=== PATIENT | male | born 1980 | race Caucasian/White ===

== ENCOUNTER 2024-04-06 18:04 | Emergency (ER) | payer OTHER, SELFPAY ==
[2024-04-06] MEDS ORDERED: Ketorolac Tromethamine 30 MG (1 mL) VIAL ONE (18:18)
[2024-04-06 18:57] LABS: #Basophils 0.1 thou/uL (0.0-0.2); #Eosinphils 0.5 thou/uL (0.0-0.7); #Lymphocytes 2.8 thou/uL (1.20-3.40); #Monocytes 0.9 thou/uL (0.11-0.59); %Basophils 1.1 % (0.0-1.0); %Eosinophils 4.2 % (0.0-10.0); %Lymphocytes 24.8 % (21.0-51.0); %Monocytes 8.1 % (0.0-10.0); %Neutrophils 61.8 % (42.0-75.0); Hematocrit 50.1 % (42.0-52.0); Mean Corpuscular HGB CONC 33.9 g/dL (32.0-36.0); Mean Corpuscular Hemoglobin 30.6 pg (27.0-31.0); Mean Corpuscular Volume 90.1 fl (78.0-98.0); Mean Platelet Volume 7.5 fL (7.4-10.4); Platelet Count 305 10x3/uL (130-400); RBC Distribution Width 11.5 % (11.5-14.5); Red Blood Cell (RBC) Count 5.56 mill/uL (4.70-6.10); White Blood Cell (WBC) Count 11.3 10x3/uL (4.8-10.8)
[2024-04-06] MEDS ORDERED: fentaNYL 50 mcg/mL 1 mL Vial ONE (18:59)
[2024-04-06 19:13] LABS: ALT (SGPT) 33 U/L (8-55); AST (SGOT) 22 U/L (5-34); Albumin 4.1 g/dL (3.5-5.0); Alkaline Phosphatase 65 U/L (40-110); Anion Gap 15 mmol/L (10-20); BUN (Urea Nitrogen) 17 mg/dL (8.9-20.6); Bilirubin, Total 0.4 mg/dL (0.2-1.2); Calc. Creatinine Clearance 0 mL/min (70-130); Calcium 9.4 mg/dL (7.8-10.44); Carbon Dioxide 19 mmol/L (22-29); Chloride 106 mmol/L (98-107); Estimated GFR 50; Globulin 2.9 g/dL (2.4-3.5); Glucose 169 mg/dL (70-105); Lipase 50 U/L (8-78); Potassium 4.4 mmol/L (3.5-5.1); Sodium 136 mmol/L (136-145)
[2024-04-06] MEDS ORDERED: Tamsulosin HCl 0.4 MG CAP ONE (19:31)
[2024-04-06 20:02] LABS: Bacteria/HPF None Seen HPF (None Seen); Bilirubin Negative (Negative); Blood, Urine Large (Negative); CAUTI Indications for Culture Pelvic or flank pain; Clarity Clear (Clear); Glucose, Urine (Dipstick) Negative (Negative); Ketone, Urine Trace mg/dL (Negative); Leukocyte Negative (Negative); Nitrite Negative (Negative); Protein, Urine (Dipstick) 30 mg/dL (Neg-Trace); Squamous Epithelial None Seen HPF (0-3); Urobilinogen 0.2 mg/dL (Less than 2); WBC/HPF None Seen HPF (0-3); pH, Urine 7.5 (5.0-9.0)
[2024-04-06 20:04] LABS: Urine Culture Reflex No No
[2024-04-06] MEDS ORDERED: HYDROmorphone 0.5 MG/0.5 ML SYRINGE ONE (20:26)
[2024-04-06] MEDS ORDERED: Ondansetron PF 4 MG/2 ML Vial ONE (20:36)
[2024-04-06 22:03] LABS: Lactic Acid 1.8 mmol/L (0.5-2.2)
[2024-04-06] MEDS ORDERED: traMADol HCl 50 MG TAB ONE (23:25)
[2024-04-07] MEDS ORDERED: HYDROmorphone 0.5 MG/0.5 ML SYRINGE ONE (00:12)
== END 2024-04-07 00:25 | disposition home or self-care (01) ==
LOC: BURERS 18:04
DX: N13.2 Hydronephrosis with renal and ureteral calculous obstruction (principal); F17.210 Nicotine dependence, cigarettes, uncomplicated
CPT/HCPCS: 36415; 74176; 80053; 81001; 83605; 83690; 85025; 96361; 96374; 96375; 96376; J1170; J1885; J2405; J3010

== ENCOUNTER 2024-08-11 15:48 | Emergency (ER) | payer OTHER ==
[2024-08-11] MEDS ORDERED: methylPREDNISolone Sod Succ/PF 125 MG/2 ML VIAL ONE (16:11)
== END 2024-08-11 17:16 | disposition home or self-care (01) ==
LOC: BURERS 15:48
DX: M51.16 Intervertebral disc disorders with radiculopathy, lumbar region (principal); F17.210 Nicotine dependence, cigarettes, uncomplicated; F43.10 Post-traumatic stress disorder, unspecified
CPT/HCPCS: 72131; 96372; J2919